=== PATIENT | female | born 1965 | race Caucasian/White ===

== ENCOUNTER → 2016-08-23 | Outpatient (CLI) | payer OTHER ==
[~2016-08-23] MED LIST: GADOBUTROL 7.5 MMOL/7.5 ML VIAL INT ART ONE; IOHEXOL 300 MG/ML 10ML VIAL. INT ART ONE; LIDOCAINE 1% Multi-Dose 20 ML VIAL. ID ONE
--- NOTE | 2016-08-23 14:08 | KCIC ---
MRI arthrogram of the left hip history: Left hip pain, chronic. Intra-articular contrast injected into the left hip. Routine multiplanar sequences are obtained. FINDINGS: No bone lesion or acute fracture. No acute marrow edema. No femoral head osteonecrosis. Defect at the superior labrum compatible with a detached labral tear. No advanced primary osteoarthritis. Mild signal and ill-definition of the gluteus minimus and medius tendons compatible with tendinosis. No high-grade tear or rupture. Mild adjacent edema. Hamstring tendon is intact. Iliopsoas tendon is intact. Rectus femoris tendon is intact. No acute muscle pathology. IMPRESSION: 1. Tear of the superior labrum. 2. Gluteus minimus and medius tendinosis. Electronically signed by: Del Donovan MD (08/23/2016 2:05 PM)
--- NOTE | 2016-08-23 17:42 | KCIC ---
PROCEDURE: Left hip injection using fluoroscopic guidance, prior to MR. HISTORY: Hip pain. TECHNIQUE: The procedure was explained to the patient as were potential risks, including among others infection, bleeding or allergic reaction. All questions were answered. Informed written and verbal consent was obtained. The hip region was prepped and draped in the usual sterile manner. Following administration of local anesthetic, a 22-gauge needle was advanced into the anterior hip. Following negative aspiration, 12 cc of a solution of 5cc Omnipaque-300 contrast, 5 cc 1% lidocaine, 10 cc normal saline, and 0.1 cc gadolinium was injected without difficulty. The needle was removed. There was good hemostasis at the injection site. The patient left in stable condition without immediate complication. The patient was given postprocedural instructions, and instructed to contact us or the ER if there are any complications. A single spot image is obtained. FLUOROSCOPY TIME:?32 seconds Electronically signed by: Del Donovan MD (08/23/2016 5:38 PM)
== END | disposition home or self-care (01) ==
LOC: KCIC 10:28
PROVIDERS: ATTEND Family Medicine
DX: M25.552 Pain in left hip (principal); G89.29 Other chronic pain
CPT/HCPCS: 73525; 73722; Q9967; A9585